=== PATIENT | male | born 1995 | race Caucasian/White ===

== ENCOUNTER → 2016-12-10 | Outpatient (CLI) | payer OTHER ==
[~2016-12-10] MED LIST: ISOVUE-370 76% 100ML VIAL (Q9967) As Ordered ONE
--- NOTE | 2016-12-10 14:47 | REP ---
CT CHEST WITH CONTRAST: 12/10/2016. CLINICAL HISTORY: Recent chest x-ray with 6 mm nodular density anterior-inferior chest on the lateral view. Please evaluate. TECHNIQUE: Helical scanning through the chest after infusion of 75 mL of Isovue-[id number]. Coronal and sagittal reconstructions performed with thick-slab MIP lung window reformats. FINDINGS: The lungs are well inflated. In the medial segment of the right middle lobe subpleural region, is a 10 mm densely calcified granuloma. I do not see other calcified granulomas in the lung bowman. There are no other pulmonary nodules, areas of pleural thickening, calcified pleural plaque, or parenchymal mass. No acute infiltrate, atelectasis. I see no effusion, pneumothorax, pneumomediastinum. Heart not enlarged. There is no pericardial thickening or effusion. The aorta is without aneurysm or dissection. The main, right, and left pulmonary arteries and the mediastinum are without a filling defect. No pathologic sized adenopathy. No axillary, supraclavicular mass. The bone windows show the sternum, manubrium, clavicles, AC joints, glenohumeral joints, humeral heads, scapula, ribs, and spine without fracture or destructive lesion. No disc space narrowing or compression deformity. In the upper abdomen, there is no hiatal hernia. Liver and spleen, visualized adrenal glands, upper poles of kidneys, that portion of spleen, all unremarkable. IMPRESSION: 1. Finding on radiograph is a calcified granuloma. There is no acute cardiopulmonary disease. Otherwise, completely normal chest CT with contrast. Signed by Andre Walters MD 12/10/2016 04:56 P
== END ==
LOC: M RAD 13:30
PROVIDERS: ATTEND Physician Assistant
DX: R91.8 Other nonspecific abnormal finding of lung field (principal)